=== PATIENT | male | born 1980 | race Caucasian/White ===

== ENCOUNTER 2016-09-07 04:27 | Emergency (ER) | payer OTHER ==
[~2016-09-07] VITALS: Ht 180.3 cm; Wt 95.5 kg
[~2016-09-07 04:27] MED LIST: BACTDS PO; IBUP800T25 PO
[2016-09-07 04:36] VITALS: Ht 180.3 cm; Wt 95.5 kg
[2016-09-07] MEDS ORDERED: morphine 4 MG/ML VIAL IV STA (05:55)
[2016-09-07] MEDS ORDERED: ONDANSETRON 4 MG INJ IV STA (05:55)
[2016-09-07 05:59] LABS: ADD SCAN DIFF NO
[2016-09-07 06:06] LABS: BASOPHIL # 0.1 10^3/ul (0.0-0.1); BASOPHILS % 0.9 % (0.0-2.0); EOSINOPHILS # 0.3 10^3/ul (0.0-0.5); EOSINOPHILS % 3.7 % (0.0-7.0); HEMATOCRIT 44.9 % (42.0-52.0); HEMOGLOBIN 15.2 g/dl (14.0-18.0); LYMPHOCYTES # 2.1 10^3/ul (0.8-2.9); LYMPHOCYTES % 31.4 % (15.0-51.0); MEAN CORPUSCULAR HEMOGLOBIN 30.8 pg (29.0-33.0); MEAN CORPUSCULAR HGB CONC 33.9 g/dl (32.0-37.0); MEAN CORPUSCULAR VOLUME 91.1 fl (82.0-101.0); MEAN PLATELET VOLUME 10.9 fl (7.4-10.4); MONOCYTE # 0.4 10^3/ul (0.3-0.9); MONOCYTES % 5.3 % (0.0-11.0); NEUTROPHILS % 58.6 % (39.0-77.0); PLATELET COUNT 252 10^3/UL (140-415); RED BLOOD COUNT 4.93 10^6/ul (4.70-6.10); RED CELL DISTRIBUTION WIDTH 13.7 % (11.5-14.5); WHITE BLOOD COUNT 6.8 10^3/ul (4.8-10.8)
[2016-09-07 06:09] LABS: ADD UMIC NO; URINE BILIRUBIN (Dip) NEGATIVE (NEGATIVE); URINE BLOOD (Dip) NEGATIVE (NEGATIVE); URINE COLOR LT. YELLOW (YELLOW); URINE GLUCOSE (Dip) NEGATIVE (NEGATIVE); URINE KETONES (Dip) NEGATIVE (NEGATIVE); URINE LEUKOCYTE ESTERASE (Dip) NEGATIVE (NEGATIVE); URINE NITRITE (Dip) NEGATIVE (NEGATIVE); URINE TOTAL PROTEIN (Dip) NEGATIVE (NEGATIVE); URINE UROBILINOGEN (Dip) 0.2 E.U./dL (0.1-1.0)
[2016-09-07 06:25] LABS: ALBUMIN 4.6 g/dl (3.3-4.9)
[2016-09-07 06:26] LABS: POTASSIUM 3.7 mmol/L (3.5-5.1)
[2016-09-07 06:28] LABS: ALBUMIN/GLOBULIN RATIO 1.43; BILIRUBIN,INDIRECT 0.3 mg/dl (0-1.1); BILIRUBIN,TOTAL 0.3 mg/dl (0.2-1.3); CREATININE 0.86 mg/dl (0.61-1.24); TOTAL PROTEIN 7.8 g/dl (6.1-8.1)
[2016-09-07 06:29] LABS: CALCIUM 8.7 mg/dl (8.4-10.2)
[2016-09-07] MEDS ORDERED: FAMOTIDINE 20 MG TAB PO STA (06:53)
[2016-09-07] MEDS ORDERED: BELLADONNA/PHENOBARBITAL TAB PO STA (06:53)
[2016-09-07] MEDS ORDERED: LIDOCAINE/MYLANTA 40 ML BTL PO STA (06:53)
[2016-09-07] MEDS ORDERED: NAPR-688 PO (06:56)
[2016-09-07] MEDS ORDERED: OMEP40CA6 PO (06:56)
[2016-09-07] MEDS ORDERED: FAMO40TA52 PO (06:56)
[2016-09-07] MEDS ORDERED: MAG355OR14 PO (06:56)
--- NOTE | 2016-09-07 06:57 | ERD ---
ER Documentation Chief Complaint Date/Time DATE: 09/07/16 TIME: 06:56 Chief Complaint Left upper quadrant pain x2 days. Pt had alcohol consumption last night HPI 36-year-old man complains of left upper quadrant abdominal pain and burning similar previous episodes 3 days. He states symptoms began and even got worse after drinking alcohol, he does have a history of chronic alcoholism. Patient has had similar episodes in the past usually associated with alcohol intake. Patient denies fevers or chills, no blood per rectum or melena, no weight loss, no vomiting or diarrhea. ROS All systems reviewed and are negative except as per history of present illness. Medications Home Meds Active Scripts Naproxen* (Naproxen*) 500 Mg Tablet, 500 MG PO BID Y for PAIN, #20 TAB Prov:LUANA SALEEM MD 09/07/16 Omeprazole* (Omeprazole*) 40 Mg Capsule.dr, 40 MG PO DAILY, #30 CAP Prov:LUANA SALEEM MD 09/07/16 Mag Hydrox/Al Hydrox/Simeth (Maalox Advanced Suspension) 355 Ml Oral.susp, 2 TSP PO TID, #24 OZ Prov:LUANA SALEEM MD 09/07/16 Famotidine* (Famotidine*) 40 Mg Tablet, 40 MG PO HS, #30 TAB Prov:LUANA SALEEM MD 09/07/16 Ibuprofen* (Motrin*) 800 Mg Tab, 800 MG PO Q6, #30 TAB Prov:SUKHDEV DEGROOT 05/09/16 Sulfamethoxazole-Trimethoprim* (Bactrim* DS) 800-160 Mg Tab, 1 TAB PO BID, #20 TAB Prov:MARIA D ELENA DO 04/11/16 Allergies Allergies: Coded Allergies: No Known Allergy (Unverified , 04/11/16) PMhx/Soc Alcoholism, gastritis History of Surgery: Yes (ARM) Anesthesia Reaction: No Hx Neurological Disorder: No Hx Respiratory Disorders: No Hx Cardiac Disorders: Yes (HTN) Hx Psychiatric Problems: Yes (ANXIETY) Hx Miscellaneous Medical Probl: No Hx Alcohol Use: Yes (A FEW BEERS/DAY) Hx Substance Use: No Hx Tobacco Use: Yes (10 CIGS/DAY) Smoking Status: Current every day smoker FmHx Family History: No diabetes Physical Exam Vitals Vital Signs Date Time Temp Pulse Resp B/P Pulse Ox O2 Delivery O2 Flow Rate FiO2 09/07/16 07:12 97.8 80 19 135/86 99 Room Air 09/07/16 04:36 97.5 110 20 139/87 100 Physical Exam GENERAL: Well-developed, well-nourished, well-hydrated, in no apparent distress , looks nontoxic in appearance HEENT: Moist mucous membranes, pink conjunctiva, no cervical spine tenderness or step-off deformities, no goiter, no jaundice or icterus, extraocular movements intact without pain. No submandibular induration, and no pharyngeal erythema NEURO: Alert and oriented 3, cranial nerves II through XII intact bilaterally, pupils equal round reactive to light, no focal deficits or facial asymmetry, sensation intact distally Strength 5/5 in upper and lower extremities bilaterally CARDIAC: Regular rate and rhythm, no murmurs rubs or gallops LUNGS: Clear bilaterally no wheezing crackles or stridor ABDOMEN: Soft nontender, no guarding, no rigidity, no rebound, no psoas sign no obturator sign. Normoactive bowel sounds SKIN: Warm and dry to touch, no abrasions, contusions, or hematomas, no lacerations, no ecchymosis, no target lesions, and without ulcers EXTREMITIES: No clubbing cyanosis or edema, calves are bilaterally symmetrical, no Homans sign, no popliteal cord sign. Distal pulses equal and bilateral PSYCH: Normal affect without agitation or irritability Result Diagram: 09/07/16 0530 09/07/16 0530 Results 24 hrs Laboratory Tests Test 09/07/16 05:30 White Blood Count 6.810^3/ul Red Blood Count 4.9310^6/ul Hemoglobin 15.2g/dl Hematocrit 44.9% Mean Corpuscular Volume 91.1fl Mean Corpuscular Hemoglobin 30.8pg Mean Corpuscular Hemoglobin Concent 33.9g/dl Red Cell Distribution Width 13.7% Platelet Count 65019^3/UL Mean Platelet Volume 10.9fl Neutrophils % 58.6% Lymphocytes % 31.4% Monocytes % 5.3% Eosinophils % 3.7% Basophils % 0.9% Nucleated Red Blood Cells % 0.0/100WBC Neutrophils # 4.010^3/ul Lymphocytes # 2.110^3/ul Monocytes # 0.410^3/ul Eosinophils # 0.310^3/ul Basophils # 0.110^3/ul Nucleated Red Blood Cells # 0.010^3/ul Urine Color LT. YELLOW Urine Clarity CLEAR Urine pH 5.5 Urine Specific [place] 1.010 Urine Ketones NEGATIVE Urine Nitrite NEGATIVE Urine Bilirubin NEGATIVE Urine Urobilinogen 0.2 E.U./dL Urine Leukocyte Esterase NEGATIVE Urine Hemoglobin NEGATIVE Urine Glucose NEGATIVE% Urine Total Protein NEGATIVE Sodium Level 145mmol/L Potassium Level 3.7mmol/L Chloride Level 105mmol/L Carbon Dioxide Level 25mmol/L Anion Gap 19 Blood Urea Nitrogen 10mg/dl Creatinine 0.86mg/dl Glucose Level 89mg/dl Calcium Level 8.7mg/dl Total Bilirubin 0.3mg/dl Direct Bilirubin 0.00mg/dl Indirect Bilirubin 0.3mg/dl Aspartate Amino Transf (AST/SGOT) 53IU/L Alanine Aminotransferase (ALT/SGPT) 50IU/L Alkaline Phosphatase 79IU/L Total Protein 7.8g/dl Albumin 4.6g/dl Globulin 3.20g/dl Albumin/Globulin Ratio 1.43 Lipase 155U/L Current Medications Medications (Trade) Dose Ordered Sig/Jhonny Route PRN Reason Start Time Stop Time Status Last Admin Dose Admin Morphine Sulfate (morphine) 4 mg ONCE STAT IV 09/07/16 05:55 09/07/16 05:57 DC 09/07/16 06:01 Ondansetron HCl (Zofran Inj) 4 mg ONCE STAT IV 09/07/16 05:55 09/07/16 05:57 DC 09/07/16 06:01 Famotidine (Pepcid) 40 mg ONCE STAT PO 09/07/16 06:53 09/07/16 06:54 DC 09/07/16 07:06 Miscellaneous Medication (Gi Cocktail (2)) 40 ml ONCE STAT PO 09/07/16 06:53 09/07/16 06:54 DC 09/07/16 07:06 Belladonna/ Phenobarbital () 2 tab ONCE STAT PO 09/07/16 06:53 09/07/16 06:54 DC 09/07/16 07:06 Procedures/MDM An IV line was established patient was placed on fire patroller rhythm strip revealed a sinus rhythm at about 80 bpm with upright P and T waves. I administered morphine 4 mg IV and Zofran 4 mg IV with good response. Patient also received a GI cocktail 50 cc p.o., and famotidine 40 mg p.o. with good response. CBC and electrolytes were normal, liver function tests were normal, urine analysis was negative. Differential diagnoses considered, included but not limited to acute coronary syndrome, pulmonary embolism, aortic dissection, abdominal aortic aneurysm, sepsis, stroke, meningitis, encephalitis, pneumonia, appendicitis, cholecystitis , bowel obstruction, pyelonephritis, nephrolithiasis, cystitis, as well as metabolic, hematologic, and electrolyte abnormalities. As well as abscess, cellulitis, fractures, and dislocations. Patient feels much better at this time, and vital signs are normal, symptoms have improved. I did give strict instructions to return to the ED if symptoms continue or worsen, patient will otherwise follow-up with primary care physician. Patient understood instructions and agreed to plan. Departure Diagnosis: Primary Impression: Alcoholic gastritis Chronicity: acute Gastritis bleeding: without bleeding Qualified Code: K29.20 - Acute alcoholic gastritis without hemorrhage Condition: Good Patient Instructions: Alcoholism: Getting Help, Gastritis Vs. Ulcer LUANA SALEEM MD Sep 07, 2016 06:57
[2016-09-07 07:12] VITALS: BP 135/86; PULSE 80; RESP 19; TEMP 97.8
== END 2016-09-07 09:08 | disposition home or self-care (01) ==
LOC: E/R 04:27
DX: K29.20 Alcoholic gastritis without bleeding (principal); I10 Essential (primary) hypertension; F17.210 Nicotine dependence, cigarettes, uncomplicated
CPT/HCPCS: 36415; 80053; 81003; 83690; 85025; 96374; 96375; J2270; J2405; Z7502; Z7610

== ENCOUNTER 2016-09-19 01:11 | Emergency (ER) | payer OTHER ==
[~2016-09-19] VITALS: Ht 177.8 cm; Wt 95.5 kg
[~2016-09-19 01:11] MED LIST changes: +FAMO40TA52 PO; +MAG355OR14 PO; +NAPR-688 PO; +OMEP40CA6 PO
[2016-09-19 01:13] VITALS: Ht 177.8 cm; Wt 95.5 kg
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
[2016-09-19] MEDS ORDERED: IBUPROFEN 600 MG TAB PO ONE (02:30)
[2016-09-19 02:50] VITALS: BP 141/89; PULSE 92; RESP 18; TEMP 97.9
== END 2016-09-19 02:54 | disposition left against medical advice (07) ==
LOC: E/R 01:11
DX: S01.81XA Laceration without foreign body of other part of head, initial encounter (principal); I10 Essential (primary) hypertension; F17.210 Nicotine dependence, cigarettes, uncomplicated; R40.2142 Coma scale, eyes open, spontaneous, at arrival to emergency department; R40.2362 Coma scale, best motor response, obeys commands, at arrival to emergency department; R40.2252 Coma scale, best verbal response, oriented, at arrival to emergency department; X99.8XXA Assault by other sharp object, initial encounter
CPT/HCPCS: 12001; Z7502; Z7610

== ENCOUNTER 2017-12-12 16:48 | Emergency (ER) | END 2017-12-12 20:12 | disposition home or self-care (01) ==